=== PATIENT | female | born 1965 | race African-American/Black ===

== ENCOUNTER 2016-08-29 21:06 | Emergency (ER) | payer OTHER ==
[~2016-08-29] VITALS: Ht 177.8 cm; Wt 84.4 kg
[~2016-08-29 21:06] MED LIST: ALBUTEROL2.5 MG/3 M INH; AMOXICILLIN500 MG ORAL; AUGMENTIN 875-1 EAC1 ORAL; CORTISPORIN EAR10 ML OTIC; DEPAKOTE250 MG PO; DILANTIN100 MG ORAL; IBUPROFEN600 MG ORAL; PHENYTOIN MC; TRAMADOL HCL50 MG ORAL; VALIUM5 MG ORAL
[2016-08-29] MEDS ORDERED: IBUPROFEN600 MG ORAL (21:57)
--- NOTE | 2016-08-29 21:58 | Emergency Room Report ---
History of Present Illness General Chief Complaint: Multiple Trauma/Fall Source: Patient Present Illness [facility] This is a 51-year-old female presents with chief complaint of a fall. She said she was walking down the steps and she slipped and fell her knee and elbow. Complaining of bilateral knee and elbow pain. No loss of consciousness. Said pain is 9/10. No other injury. No swelling. Allergies: Coded Allergies: PHENOBARBITAL (Unverified Allergy, Unknown, 10/23/14) Patient History Past Medical History: see triage record, old chart reviewed Past Surgical History: none Pertinent Family History: none Social History: Reports: drug use, Denies: smoking Last Menstrual Period: 2001 Now: No Immunizations: other Reviewed Nursing Documentation: PMH: Agreed, PSxH: Agreed Nursing Documentation-PMH Past Medical History: No History, Except For Hx Asthma: Yes Hx COPD: Yes Hx Diabetes: Yes Hx Cerebrovascular Accident: Yes Hx Seizures: Yes Review of Systems Eye: Denies: blurred vision, eye pain ENT: Denies: ear pain, nose congestion, throat swelling Respiratory: Denies: cough, shortness of breath Cardiovascular: Denies: chest pain, palpitations Gastrointestinal: Denies: abdominal pain, diarrhea, nausea, vomiting Musculoskeletal: Denies: back pain, joint pain Skin: Denies: rash Neurological: Denies: headache, numbness Endocrine: Denies: increased thirst, increased urine Hematologic/Lymphatic: Denies: easy bruising All Other Systems: negative except mentioned in HPI Physical Exam Vital Signs Date Time Temp Pulse Resp B/P Pulse Ox O2 Delivery O2 Flow Rate FiO2 08/29/16 21:18 98.2 85 16 111/73 100 Room Air vitals normal Sp02 EP Interpretation: reviewed, normal General Appearance: well appearing, no apparent distress, alert Head: normocephalic, atraumatic Eyes: bilateral eye EOMI, bilateral eye PERRL ENT: hearing grossly normal, normal pharynx Neck: full range of motion, supple, no meningismus Respiratory: chest non-tender, lungs clear, normal breath sounds Cardiovascular #1: regular rate, rhythm, no murmur Gastrointestinal: normal bowel sounds, non tender, no mass, no organomegaly, no bruit, non-distended Musculoskeletal: back normal, gait/station normal, normal range of motion Psychiatric: mood/affect normal Skin: warm/dry Medical Decision Making Diagnostic Impression: Primary Impression: Elbow contusion Qualified Codes: S50.00XA - Contusion of unspecified elbow, initial encounter Additional Impression: Knee contusion Qualified Codes: S80.00XA - Contusion of unspecified knee, initial encounter ER Course Patient presents with chief complaint of fall and injury. I see no trauma to the elbow or the knee. No swelling or abrasion. No need for x-rays. We'll discharge home. Last Vital Signs Date Time Temp Pulse Resp B/P Pulse Ox O2 Delivery O2 Flow Rate FiO2 08/29/16 21:18 98.2 85 16 111/73 100 Room Air Status: improved Disposition: HOME, SELF-CARE Condition: Stable Scripts Ibuprofen* (MOTRIN*) 600 Mg Tablet 600 MG ORAL Q8H Y for For Pain, #30 TAB 0 Refills Prov: KYLAH TREVIÑO M.D. 08/29/16 Additional Instructions: Follow up with your doctor in 7 days. Return if worse. KYLAH TREVIÑO M.D. Aug 29, 2016 21:58
[2016-08-29 22:08] VITALS: BP 114/76
[2016-08-29 22:09] VITALS: BP 114/76
== END 2016-08-29 22:10 | disposition home or self-care (01) ==
LOC: EMR 21:41
DX: S50.00XA Contusion of unspecified elbow, initial encounter (principal); S80.00XA Contusion of unspecified knee, initial encounter; J44.9 Chronic obstructive pulmonary disease, unspecified; J45.909 Unspecified asthma, uncomplicated; E11.9 Type 2 diabetes mellitus without complications; Z86.73 Personal history of transient ischemic attack (TIA), and cerebral infarction without residual deficits; Z88.8 Allergy status to other drugs, medicaments and biological substances; W10.9XXA Fall (on) (from) unspecified stairs and steps, initial encounter; Y92.9 Unspecified place or not applicable; Y99.8 Other external cause status
CPT/HCPCS: 99283

== ENCOUNTER 2017-02-12 10:56 | Emergency (ER) | payer OTHER ==
[~2017-02-12] VITALS: Ht 177.8 cm; Wt 86.2 kg
[2017-02-12 11:20] VITALS: BP 114/72
--- NOTE | 2017-02-12 11:25 | Emergency Room Report ---
History of Present Illness General Chief Complaint: Earache Source: Patient Present Illness HPI Patient with severe R ear pain. Several days. No change in hearing. No discharge. Tender behind ear and to touch. Pain 9/10, constant and aching. Had OE May 2016 - was told "swimmer's ear" and states this is not what this is. She has fallen because her equilibrium is off. C/O R knee pain, though able to walk. Pain in knee is less than ear and aching, not radiating. No fevers, NVD, URI sy, eye changes, nose d/c. Denies rash. Presented via EMS. Allergies: Coded Allergies: PHENOBARBITAL (Unverified Allergy, Unknown, VOMIT/CRAMPING, 12/01/16) Patient History Past Medical History: see triage record Social History: Reports: smoking Social History Narrative at home Nursing Documentation-[facility] Past Medical History: No History, Except For Hx Cardiac Problems: Yes Hx Asthma: Yes Hx COPD: Yes Hx Diabetes: Yes Hx Cancer: No Hx Gastrointestinal Problems: No Hx Neurological Problems: Yes Hx Cerebrovascular Accident: Yes Hx Seizures: Yes - Epilepsy Review of Systems All Other Systems: negative except mentioned in HPI Physical Exam Vital Signs Date Time Temp Pulse Resp B/P Pulse Ox O2 Delivery O2 Flow Rate FiO2 02/12/17 10:52 97.5 68 14 114/72 96 Room Air Sp02 EP Interpretation: reviewed, normal General Appearance: well appearing, no apparent distress, GCS 15 Head: normocephalic, atraumatic Eyes: bilateral eye PERRL, bilateral eye normal inspection ENT: hearing grossly normal, normal voice, other - TM normal R, canal erythema and pinna tenderness. Some scale lobe. Neck: full range of motion, supple, no bony tend Respiratory: lungs clear, no respiratory distress, speaking full sentences Cardiovascular #1: regular rate, rhythm Cardiovascular #2: 2+ radial (R) Gastrointestinal: scaphoid Musculoskeletal: digits/nails normal, gait/station normal, normal range of motion, no calf tenderness, swelling - minimal medial R knee. Ligaments stable. Ambulatory Neurologic: alert, normal gait, grossly normal Psychiatric: mood/affect normal Skin: other - scale earlobe Medical Decision Making Diagnostic Impression: Primary Impression: Otitis externa Qualified Codes: H60.311 - Diffuse otitis externa, right ear ER Course Patient presents with R OE. TM intact. Some inflammation of lobe (possibly allergic). Needs antibiotics and analgesics. Knee neg by [place] knee rules. No x-rays indicated. Treated with antibiotics and analgesics. Improved. Patient stable for outpatient observation and treatment. Last Vital Signs Date Time Temp Pulse Resp B/P Pulse Ox O2 Delivery O2 Flow Rate FiO2 02/12/17 13:32 97.5 68 14 114/72 96 Room Air Status: improved Disposition: HOME, SELF-CARE Condition: Improved Scripts Bacitracin (Bacitracin) 28.4 Gm Oint...g. 1 APPLIC TOPIC BID, #10 GM Prov: Constantino Ya M.D. 02/12/17 Tramadol Hcl* (ULTRAM*) 50 Mg Tablet 50 MG ORAL Q6H Y for For Pain, #10 TAB 0 Refills Prov: Constantino Ya M.D. 02/12/17 Ibuprofen* (MOTRIN*) 600 Mg Tablet 600 MG ORAL Q6H Y for For Pain, #20 TAB Prov: Constantino Ya M.D. 02/12/17 Ciprofloxacin Hcl/Dexameth (CIPRODEX OTIC SUSPENSION) 7.5 Ml Drops.susp 4 DROP RIGHT EAR TWICE A DAY, #10 ML Prov: Constantino Ya M.D. 02/12/17 Ciprofloxacin* (CIPRO*) 500 Mg Tablet 500 MG PO BID, #14 TAB Prov: Constantino Ya M.D. 02/12/17 Referrals: NOT CHOSEN CHACHO/,REFERRING (PCP) Constantino Ya M.D. Feb 12, 2017 11:25
[2017-02-12] MEDS ORDERED: IBUPROFEN600 MG ORAL (11:28)
[2017-02-12] MEDS ORDERED: CIPRO500 MG PO (11:28)
[2017-02-12] MEDS ORDERED: CIPRODEX OTIC7.5 M1 RIGHT EAR (11:28)
[2017-02-12] MEDS ORDERED: TRAMADOL HCL50 MG ORAL (11:28)
[2017-02-12] MEDS ORDERED: Ciprofloxacin 500mg tab ORAL ONE (11:30)
[2017-02-12] MEDS ORDERED: BACITRACIN15 GM TOPIC (11:31)
[2017-02-12 13:32] VITALS: BP 114/72
== END 2017-02-12 13:33 | disposition home or self-care (01) ==
LOC: EDBD 10:56 → EMR 11:11
DX: H60.91 Unspecified otitis externa, right ear (principal); E11.9 Type 2 diabetes mellitus without complications; J44.9 Chronic obstructive pulmonary disease, unspecified; M79.89 Other specified soft tissue disorders; F17.200 Nicotine dependence, unspecified, uncomplicated; Z88.8 Allergy status to other drugs, medicaments and biological substances; Z86.73 Personal history of transient ischemic attack (TIA), and cerebral infarction without residual deficits
CPT/HCPCS: 99284

== ENCOUNTER 2017-03-21 14:29 | Emergency (ER) | payer OTHER ==
[~2017-03-21] VITALS: Ht 172.7 cm; Wt 72.6 kg
[2017-03-21 14:29] VITALS: BP 112/74
[~2017-03-21 14:29] MED LIST changes: +BACITRACIN15 GM TOPIC; +CIPRO500 MG PO; +CIPRODEX OTIC7.5 M1 RIGHT EAR
[2017-03-21 15:45] LABS: BASOPHILS % (AUTO) 1.1 % (0.0-2.0); EOSINOPHILS % (AUTO) 2.7 % (0.0-3.0); MEAN CORPUSCULAR HEMOGLOBIN 32.2 PG (27.0-31.0); MEAN CORPUSCULAR HGB CONC 33.7 G/DL (32.0-36.0); MEAN CORPUSCULAR VOLUME 96 FL (80-99); MONOCYTES % (AUTO) 8.8 % (1.0-10.0); NEUTROPHILS % (AUTO) 56.5 % (45.0-75.0); PLATELET COUNT 213 K/UL (150-450); RED BLOOD COUNT 4.33 M/UL (4.20-5.40); RED CELL DISTRIBUTION WIDTH 12.7 % (11.6-14.8)
[2017-03-21 15:53] LABS: ACETAMINOPHEN < 10 ug/mL (10-30); ALANINE AMINOTRANSFERASE 11 U/L (3-33); ALBUMIN/GLOBULIN RATIO 1.3 (1.0-2.7); ALCOHOL < 10 mg/dL; ANION GAP 13 (5-15); ASPARTATE AMINO TRANSFERASE 18 U/L (5-40); CALCIUM 9.8 mg/dL (8.6-10.2); CARBON DIOXIDE 24 mEQ/L (20-30); CHLORIDE 104 mEQ/L (98-107); CREATININE 0.7 mg/dL (0.5-0.9); GLOMERULAR FILTRATION RATE > 60 mL/min (>60); HEMOLYSIS 16; POTASSIUM 4.1 mEQ/L (3.4-4.9); SODIUM 141 mEQ/L (135-145); TOTAL PROTEIN 7.9 g/dL (6.6-8.7)
--- NOTE | 2017-03-21 16:00 | Emergency Room Report ---
History of Present Illness General Chief Complaint: Overdose Source: Patient, EMS Present Illness HPI Patient 51-year-old female who presented after increased who presented after a reported overdose of Seroquel. Patient reportedly took 5 pills of Seroquel XR 400 mg. Ingestion occurred approximately 1 1/2 hours prior to arrival . The patient brought in by EMS. Allergies: Coded Allergies: PHENOBARBITAL (Unverified Allergy, Unknown, VOMIT/CRAMPING, 12/01/16) Patient History Reviewed Nursing Documentation: PMH: Agreed, PSxH: Agreed Nursing Documentation-PMH Hx Hypertension: Yes - emphysema, chf Hx Asthma: Yes Hx COPD: Yes Hx Diabetes: Yes Hx Cancer: No Hx Gastrointestinal Problems: No History Of Psychiatric Problem: Yes Hx Neurological Problems: Yes Hx Cerebrovascular Accident: Yes Hx Seizures: Yes Review of Systems All Other Systems: negative except mentioned in HPI Physical Exam Vital Signs Date Time Temp Pulse Resp B/P Pulse Ox O2 Delivery O2 Flow Rate FiO2 03/21/17 14:27 97.2 72 16 112/74 99 Room Air Sp02 EP Interpretation: reviewed, normal General Appearance: normal inspection, well appearing, no apparent distress, alert, GCS 15 Head: normocephalic, atraumatic ENT: normal ENT inspection, hearing grossly normal, normal voice Neck: normal inspection, full range of motion, supple, no bony tend Respiratory: normal inspection, lungs clear, normal breath sounds, no respiratory distress, no retraction, no wheezing Cardiovascular #1: regular rate, rhythm, no edema Gastrointestinal: normal inspection, normal bowel sounds, non tender, soft, no guarding, no hernia Genitourinary: no CVA tenderness Musculoskeletal: normal inspection, back normal, normal range of motion Neurologic: normal inspection, alert, responsive, speech normal Psychiatric: normal inspection, judgement/insight normal, mood/affect normal Skin: normal inspection, normal color, no rash Medical Decision Making Diagnostic Impression: Primary Impression: Cocaine abuse Additional Impression: Drug overdose ER Course Patient is a for possible medication overdose. Differential diagnoses include substance abuse, psychosis, bipolar disorder, depression, malingering Because of complexity of patient's case laboratory testing and imaging studies were ordered. Laboratory studies are unremarkable. Patient was noted to have no evidence of somnolence while in emergency department. Patient was observed for several hours. She had no change in her mental status. Patient does not appear to have evidence of suicidal thoughts this time. Patient is advised to stop using drugs.Patient is advised to return if she began having suicidal thoughts or other concerns. Last Vital Signs Date Time Temp Pulse Resp B/P Pulse Ox O2 Delivery O2 Flow Rate FiO2 03/21/17 14:27 97.2 72 16 112/74 99 Room Air Status: improved Disposition: HOME, SELF-CARE Condition: Stable Tam Camp Mar 21, 2017 15:59
[2017-03-21 16:02] LABS: APPEARANCE,URINE CLEAR; KETONES,URINE NEGATIVE (NEGATIVE); LEUKOCYTE ESTERASE ,URINE 1+ (NEGATIVE); NITRITE,URINE NEGATIVE (NEGATIVE); PH,URINE 6 (4.5-8.0); PROTEIN,URINE NEGATIVE (NEGATIVE); UROBILINOGEN,URINE NORMAL MG/DL (0.0-1.0)
[2017-03-21 16:13] LABS: BACTERIA,URINE FEW /HPF; SQUAMOUS EPITHELIAL CELL,UR FEW /LPF (NONE/OCC); WBC,URINE 0-2 /HPF (0 - 2)
[2017-03-21 18:45] VITALS: BP 115/71
--- NOTE | 2017-03-23 00:52 | Cardiology Report ---
APPROVED REPORT EKG Measurement Heart [id number] Sinus bradycardia Otherwise normal ECG
== END 2017-03-21 18:45 | disposition home or self-care (01) ==
LOC: EDBD 14:29 → EMR 15:28
DX: F14.10 Cocaine abuse, uncomplicated (principal); T43.591A Poisoning by other antipsychotics and neuroleptics, accidental (unintentional), initial encounter; Y92.9 Unspecified place or not applicable; Z88.8 Allergy status to other drugs, medicaments and biological substances; I50.9 Heart failure, unspecified; J44.9 Chronic obstructive pulmonary disease, unspecified; E11.9 Type 2 diabetes mellitus without complications; Z86.73 Personal history of transient ischemic attack (TIA), and cerebral infarction without residual deficits
CPT/HCPCS: 36415; 80053; 80300; 80329; 81003; 81025; 85025; 93005; 96374

== ENCOUNTER 2017-07-12 14:45 | Emergency (ER) | payer OTHER ==
[~2017-07-12] VITALS: Ht 177.8 cm; Wt 81.6 kg
[2017-07-12 14:58] VITALS: BP 100/62
[2017-07-12] MEDS ORDERED: Norco 5mg/325mg tab ORAL ONE (15:15)
--- NOTE | 2017-07-12 15:43 | Diagnostic Imaging Report ---
Indications: PAIN, status post fall Technique: Three views of the knee Comparison: None Findings: No acute fractures. No dislocations. Joint spaces are preserved. No radiopaque foreign body. Normal mineralization. No definite suprapatellar effusion Impression: No acute process
--- NOTE | 2017-07-12 15:43 | Diagnostic Imaging Report ---
Indications: PAIN Technique: Three views of the left knee Comparison: None Findings: No acute fractures. No dislocations. Joint spaces are preserved. No radiopaque foreign body. Normal mineralization. No suprapatellar effusion Impression: No acute process
[2017-07-12] MEDS ORDERED: NORCO 5-325 TA1 EAC1 ORAL (16:00)
[2017-07-12] MEDS ORDERED: IBUPROFEN600 MG ORAL (16:00)
[2017-07-12 16:05] VITALS: BP 100/62
--- NOTE | 2017-07-12 21:14 | Emergency Room Report ---
History of Present Illness General Chief Complaint: Multiple Trauma/Fall Source: Patient Present Illness HPI The patient is a 52-year-old female presenting for the pain. She states that she was walking to the bus today, felt weak at the knees, and fell. She denies hitting her head or loss of consciousness. Pain is 2 both knees described as a 10 out of 10 dull ache. Worse with touch and movement. She admits to previous injury to the knees but is unsure of what. She has not tried any pain medications at. She denies any other symptoms Allergies: Coded Allergies: PHENOBARBITAL (Unverified Allergy, Unknown, VOMIT/CRAMPING, 12/01/16) Patient History Past Medical History: see triage record Pertinent Family History: none Reviewed Nursing Documentation: PMH: Agreed, PSxH: Agreed Nursing Documentation-PMH Hx Hypertension: Yes - emphysema, chf Hx Asthma: Yes Hx COPD: Yes Hx Diabetes: Yes Hx Cancer: No Hx Gastrointestinal Problems: No Hx Neurological Problems: Yes Hx Cerebrovascular Accident: Yes Hx Seizures: Yes Review of Systems All Other Systems: negative except mentioned in HPI Physical Exam Vital Signs Date Time Temp Pulse Resp B/P (MAP) Pulse Ox O2 Delivery O2 Flow Rate FiO2 07/12/17 14:51 97.7 77 14 100/62 99 Room Air Sp02 EP Interpretation: reviewed, normal General Appearance: no apparent distress, alert, GCS 15, non-toxic Head: normocephalic, atraumatic Eyes: bilateral eye normal inspection, bilateral eye PERRL ENT: hearing grossly normal, normal pharynx, no angioedema, normal voice Musculoskeletal: back normal, gait/station normal, normal range of motion, swelling - Bilat knees, tender - Bilat anterior knees Neurologic: alert, oriented x3, responsive, motor strength/tone normal, sensory intact, speech normal Psychiatric: judgement/insight normal, memory normal, mood/affect normal, no suicidal/homicidal ideation Skin: normal color, no rash, warm/dry, well hydrated Medical Decision Making PA Attestation Dr. Camp is my supervising physician. Patient management was discussed with my supervising physician Diagnostic Impression: Primary Impression: Contusion of knee, right Qualified Codes: S80.01XA - Contusion of right knee, initial encounter Additional Impression: Contusion of knee, left Qualified Codes: S80.02XA - Contusion of left knee, initial encounter ER Course The patient is a 52-year-old female presenting for knee pain. Ddx considered include but not limited to sprain/strain, fracture, contusion, among others PE: NAD Knees: Full AROM intact. Bilat swelling anteriorly. TTP anteriorly. Normal gait. No erythema. No abrasion Xray of both knees unremarkable She will be Dc'ed home with RICE instructions and pain medication Other X-Ray Diagnostic Results Other X-Ray Diagnostic Results #1: X-Ray ordered: R knee # of Views/Limited Vs Complete: 3 View Indication: Pain EP Interpretation: Yes PA Xray: Interpretation reviewed, by supervising MD, and agrees with findings. Interpretation: no dislocation, no soft tissue swelling, no fractures Impression: No acute disease Electronically Signed by: Manav Easton PA-C Other X-Ray Diagnostic Results #2: X-Ray ordered: L knee # of Views/Limited Vs Complete: 3 View Indication: Pain EP Interpretation: Yes PA Xray: Interpretation reviewed, by supervising MD, and agrees with findings. Interpretation: no dislocation, no soft tissue swelling, no fractures Impression: No acute disease Electronically Signed by: Manav Easton PA-C Last Vital Signs Date Time Temp Pulse Resp B/P (MAP) Pulse Ox O2 Delivery O2 Flow Rate FiO2 07/12/17 16:05 97.7 74 16 100/62 99 Room Air Status: improved Disposition: HOME, SELF-CARE Condition: Improved Scripts Ibuprofen* (MOTRIN*) 600 Mg Tablet 600 MG ORAL Q8H Y for For Pain, #30 TAB 0 Refills Prov: MANAV EASTON P.A. 07/12/17 Hydrocodone Bit/Acetaminophen 5-325* (NORCO 5-325 TABLET*) 1 Each Tablet 1 TAB ORAL Q6HR Y for For Pain, #8 TAB Prov: MANAV EASTON P.A. 07/12/17 Referrals: NON PHYSICIAN (PCP) Patient Instructions: VINCE Murillo for Routine Care of Injuries Additional Instructions: I discussed my findings with the patient. All questions and concerns have been answered. Treatment and medication compliance have been addressed. I advised the patient that they need to follow up with PMD in 3-5 days. Return to ED if symptoms worsen, new symptoms arise, or if needed for any reason. Patient verbalized understanding of discharge instructions. MANAV EASTON Jul 12, 2017 21:14
== END 2017-07-12 17:03 | disposition home or self-care (01) ==
LOC: EMR 16:13
DX: S80.02XA Contusion of left knee, initial encounter (principal); S80.01XA Contusion of right knee, initial encounter; W19.XXXA Unspecified fall, initial encounter; Y93.01 Activity, walking, marching and hiking; Y92.89 Other specified places as the place of occurrence of the external cause; J44.9 Chronic obstructive pulmonary disease, unspecified; E11.9 Type 2 diabetes mellitus without complications; I10 Essential (primary) hypertension; Z86.73 Personal history of transient ischemic attack (TIA), and cerebral infarction without residual deficits; Z88.8 Allergy status to other drugs, medicaments and biological substances
CPT/HCPCS: 99283

== ENCOUNTER 2017-08-22 15:18 | Emergency (ER) | payer OTHER ==
[~2017-08-22] VITALS: Ht 177.8 cm; Wt 68.0 kg
[~2017-08-22 15:18] MED LIST changes: +NORCO 5-325 TA1 EAC1 ORAL
--- NOTE | 2017-08-22 15:46 | Emergency Room Report ---
History of Present Illness General Chief Complaint: General Complaint Present Illness HPI 52-year-old female presents to the emergency department complaining of painless lump in the a.c. region of the right upper extremity x3 years. Patient is requesting evaluation because she wants to donate plasma. Patient reports history of cancer. Pt. reports hx of painful venipuncture experience the last time she donated plasma multiple years ago and wants to make sure her arm is ok for donation. She denies pain, erythema, skin color changes, paresthesias, unilateral weakness in the affected extremity. She denies swollen tender lymph nodes, fevers or chills. Denies CP, Palpitations, LOC, AMS, dizziness, Changes in Vision, Sensation, paresthesias, or a sudden severe headache. Allergies: Coded Allergies: PHENOBARBITAL (Unverified Allergy, Unknown, VOMIT/CRAMPING, 12/01/16) Patient History Past Medical History: see triage record, other Past Surgical History: none Pertinent Family History: none Reviewed Nursing Documentation: PMH: Agreed, PSxH: Agreed Nursing Documentation-PMH Hx Hypertension: Yes - emphysema, chf Hx Asthma: Yes Hx COPD: Yes Hx Diabetes: Yes Hx Cancer: No Hx Gastrointestinal Problems: No Hx Neurological Problems: Yes Hx Cerebrovascular Accident: Yes Hx Seizures: Yes Review of Systems All Other Systems: negative except mentioned in HPI Physical Exam Vital Signs Date Time Temp Pulse Resp B/P (MAP) Pulse Ox O2 Delivery O2 Flow Rate FiO2 08/22/17 15:26 97.9 70 20 102/57 99 Room Air Sp02 EP Interpretation: reviewed, normal General Appearance: no apparent distress, alert, GCS 15, non-toxic Head: normocephalic, atraumatic ENT: hearing grossly normal, normal voice Neck: full range of motion Respiratory: lungs clear, normal breath sounds, speaking full sentences Cardiovascular #1: regular rate, rhythm, normal capillary refill Musculoskeletal: back normal, gait/station normal, normal range of motion, non- tender Neurologic: alert, oriented x3, responsive, motor strength/tone normal, sensory intact, normal gait, speech normal, grossly normal Psychiatric: judgement/insight normal Skin: normal color, no rash, warm/dry, well hydrated, other - 1cm mobile well circumcribed palpable UE lipoma in the right A/C area , no infection, no acute injury or disease noted at this time Lymphatic: no adenopathy Medical Decision Making PA Attestation Dr. Rashid is my supervising Physician whom patient management has been discussed with. Diagnostic Impression: Primary Impression: Lipoma Qualified Codes: D17.21 - Benign lipomatous neoplasm of skin and subcutaneous tissue of right arm Additional Impression: Encounter for medical screening examination ER Course 52-year-old female presents to the emergency department complaining of painless lump in the a.c. region of the right upper extremity x3 years. Patient is requesting evaluation and she wants to undergo plasmapheresis. Patient reports history of cancer or she denies pain, erythema, skin color changes, paresthesias , unilateral weakness in the affected extremity. She denies swollen tender lymph nodes, fevers or chills. Denies CP, Palpitations, LOC, AMS, dizziness, Changes in Vision, Sensation, paresthesias, or a sudden severe headache. Ddx considered but are not limited to lipoma, blood clot, phlebitis, cyst, abscess just to name a few. Vital signs: are WNL, pt. is afebrile H&PE are most consistent with UE lipoma, no infection, no acute injury or disease noted at this time. pt. is NAD, NON-toxic, able to answer questions appropriately, pt. is oriented, and no signs of trauma or focal neurological deficits. ORDERS: none required at this time, the diagnosis is clinical ED INTERVENTIONS: None required at this time. I discussed with this patient that as an emergency room provider my main purpose is to evaluate and treat any medical emergencies. I discussed with her that for physical exam, clearance and completion of her plasma donation evaluation needs to be performed and filled/signed out by a PMD. I showed patient the signature page which details the form is to be filled out by PMD and explained I am not a primary care provider. -I do not identify an emergent condition at this time. With current presentation , pt. is stable for close outpatient follow up and conservative treatment. D/ w pt. to return promptly to ED with worsening or new symptoms.- Pt. (and or responsible libertarian) verbalizes' understanding and agreement with proposed treatment plan.proposed treatment plan. . DISCHARGE: At this time pt. is stable for d/c to home. Will provide printed patient care instructions, and any necessary prescriptions. Care plan and follow up instructions have been discussed with the patient prior to discharge. Last Vital Signs Date Time Temp Pulse Resp B/P (MAP) Pulse Ox O2 Delivery O2 Flow Rate FiO2 08/22/17 15:26 97.9 70 20 102/57 99 Room Air Disposition: HOME, SELF-CARE Condition: Stable Patient Instructions: Lipoma, Medical Screening Exam Additional Instructions: Take any previously prescribed medications as directed. Follow up with a Primary Care Provider in 3-5 days, even if your symptoms have resolved. --Please review list of primary care clinics, if you do not already have a primary care provider Return sooner to ED if new symptoms occur, or current symptoms become worse. - Please note that this Emergency Department Report was dictated using [employer] technology software, occasionally this can lead to erroneous entry secondary to interpretation by the dictation equipment. Christina Villarreal Aug 22, 2017 15:46
[2017-08-22 16:00] VITALS: BP 102/57
== END 2017-08-22 16:00 | disposition home or self-care (01) ==
LOC: EMR 15:40
DX: D17.21 Benign lipomatous neoplasm of skin and subcutaneous tissue of right arm (principal); I10 Essential (primary) hypertension; J44.9 Chronic obstructive pulmonary disease, unspecified; E11.9 Type 2 diabetes mellitus without complications; Z86.73 Personal history of transient ischemic attack (TIA), and cerebral infarction without residual deficits; Z88.8 Allergy status to other drugs, medicaments and biological substances
CPT/HCPCS: 99283

== ENCOUNTER 2017-10-11 05:57 | Emergency (ER) | payer OTHER ==
[~2017-10-11] VITALS: Ht 177.8 cm; Wt 77.1 kg
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
[2017-10-11 06:30] LABS: APPEARANCE,URINE CLEAR; BILIRUBIN, URINE NEGATIVE (NEGATIVE); COLOR,URINE PALE YELLOW; GLUCOSE, URINE (UA) NEGATIVE (NEGATIVE); KETONES,URINE NEGATIVE (NEGATIVE); LEUKOCYTE ESTERASE ,URINE 1+ (NEGATIVE); NITRITE,URINE NEGATIVE (NEGATIVE); PH,URINE 6 (4.5-8.0); PROTEIN,URINE NEGATIVE (NEGATIVE); UROBILINOGEN,URINE NORMAL MG/DL (0.0-1.0)
[2017-10-11 06:31] LABS: EOSINOPHILS % (AUTO) 2.5 % (0.0-3.0); HEMATOCRIT 36.6 % (37.0-47.0); HEMOGLOBIN 12.6 G/DL (12.0-16.0); LYMPHOCYTES % (AUTO) 29.5 % (20.0-45.0); MEAN CORPUSCULAR VOLUME 92 FL (80-99); MONOCYTES % (AUTO) 9.3 % (1.0-10.0); NEUTROPHILS % (AUTO) 57.8 % (45.0-75.0); PLATELET COUNT 198 K/UL (150-450); RED CELL DISTRIBUTION WIDTH 12.5 % (11.6-14.8); WHITE BLOOD COUNT 9.2 K/UL (4.8-10.8)
[2017-10-11 06:37] VITALS: BP 121/79
[2017-10-11 06:44] LABS: ANION GAP 7 mmol/L (5-15); BLOOD UREA NITROGEN 13 mg/dL (7-18); CALCIUM 8.8 MG/DL (8.5-10.1); CARBON DIOXIDE 27 MMOL/L (21-32); CHLORIDE 106 MMOL/L (98-107); CREATININE 0.8 MG/DL (0.55-1.30); POTASSIUM 3.7 MMOL/L (3.5-5.1); SODIUM 140 MMOL/L (136-145)
[2017-10-11] MEDS ORDERED: Acetaminophen 500mg (ES) tab ORAL ONE (06:45)
[2017-10-11] MEDS ORDERED: Phenytoin 250mg/5ml vial ONE (07:23)
[2017-10-11] MEDS ORDERED: DOXYCYCLINE MO100 MG ORAL (07:28)
[2017-10-11] MEDS ORDERED: KEFLEX500 MG ORAL (07:28)
[2017-10-11] MEDS ORDERED: Phenytoin 500 MG in NS 110 ML IVPB ONE (07:30)
[2017-10-11 07:52] VITALS: BP 120/68
[2017-10-11 08:53] VITALS: BP 120/68
--- NOTE | 2017-10-11 10:04 | Diagnostic Imaging Report ---
Indication: Seizure Technique: Contiguous 5 mm thick transaxial imaging of the head obtained in a Siemens Sensation [address] scanner. Soft tissue and bone windows generated. Automatic Exposure Control was utilized. Total Dose length Product (DLP): 1414.[address] Dose Index Volume (CTDIvol): 70.38 mGy Comparison: 12/01/2016 Findings: The size and configuration of the cortical sulci, basal cisterns, and ventricles are within normal limits for age. There is no mass effect, midline shift, or edema identified. There is no evidence of acute hemorrhage or abnormal intra-axial or extra-axial fluid collections. The bones and soft tissues are unremarkable. Impression: No mass effect, edema or acute bleed. The CT scanner at [facility] is accredited by the [employer] and the scans are performed using dose optimization techniques as appropriate to a performed exam including Automatic Exposure control.
== END 2017-10-11 08:54 | disposition home or self-care (01) ==
LOC: EDBD 05:57 → EMR 06:35
DX: H60.02 Abscess of left external ear (principal); R41.82 Altered mental status, unspecified; F14.10 Cocaine abuse, uncomplicated
CPT/HCPCS: 36415; 70450; 80048; 80185; 80307; 81003; 85025; 96361; 96365; 99284; J1165

== ENCOUNTER 2018-04-06 10:07 | Emergency (ER) | payer OTHER ==
[~2018-04-06] VITALS: Ht 177.8 cm; Wt 81.2 kg
[~2018-04-06 10:07] MED LIST changes: +DOXYCYCLINE MO100 MG ORAL; +KEFLEX500 MG ORAL
[2018-04-06 10:10] VITALS: BP 137/85
--- NOTE | 2018-04-06 10:28 | Emergency Room Report ---
History of Present Illness General Chief Complaint: Lower Extremity Injury Source: Patient Present Illness HPI Patient is a 52-year-old female who presented after increased left lower extremity discomfort. Patient was having increased pain to the the left foot. This was throbbing in nature. Patient reports having recent injury while playing basketball. She reports having prior surgery to both tib fibs after fracture as a child. The patient reports being able to ambulate with pain. She reported having increased the discomfort to her arch of her foot. The patient had recent dental procedure and is currently taking penicillin.The patient's prior history of lung disease as well as seizure disorder. She states that she takes Dilantin. Allergies: Coded Allergies: PHENOBARBITAL (Unverified Allergy, Unknown, VOMIT/CRAMPING, 12/01/16) Patient History Past Medical History: see triage record Last Menstrual Period: NA Now: No Reviewed Nursing Documentation: PMH: Agreed; PSxH: Agreed Nursing Documentation-PMH Past Medical History: No History, Except For Hx Hypertension: Yes - emphysema, chf Hx Asthma: Yes Hx COPD: Yes Hx Diabetes: No Hx Cancer: No Hx Gastrointestinal Problems: No Hx Neurological Problems: Yes - bipolar Hx Cerebrovascular Accident: Yes Hx Seizures: Yes Review of Systems All Other Systems: negative except mentioned in HPI Physical Exam Vital Signs Date Time Temp Pulse Resp B/P (MAP) Pulse Ox O2 Delivery O2 Flow Rate FiO2 04/06/18 10:10 97.9 67 18 137/85 94 Room Air 97.9 General Appearance: well appearing, no apparent distress, alert, GCS 15 Head: normocephalic, atraumatic ENT: hearing grossly normal, normal voice Neck: full range of motion, supple Respiratory: no respiratory distress, speaking full sentences Gastrointestinal: normal inspection Musculoskeletal: no calf tenderness, swelling - left foot swelling, no deformity, no ankle or calf swelling, brisk pulses and cap refill Neurologic: alert, oriented x3, responsive, rail washer III-XII nml as tested, motor strength/tone normal, normal gait Psychiatric: mood/affect normal Skin: no rash Medical Decision Making Diagnostic Impression: Primary Impression: Contusion of knee, right Additional Impression: Foot sprain ER Course Patient presented for foot pain. Differential diagnoses include was was not limited to cellulitis, foreign body, fracture, plantar fasciitis, vascular insufficiency, sprain. Because of complexity of patient's case imaging studies were ordered. X-ray imaging of the left foot 3 views interpreted by me showed normal bony alignment without fracture The patient appears to have a foot sprain. There is no no evidence of infection.The patient is advised to follow up with primary care doctor in 2-3 days. Patient is advised to return if any worsening condition or if any changes in status that are concerning. This report is dictated with [employer] paper products supervisor software which may occasionally lead to discrepancies related to use of this software. Other X-Ray Diagnostic Results Other X-Ray Diagnostic Results : # of Views/Limited Vs Complete: 3 View Indication: Pain EP Interpretation: Yes Interpretation: no dislocation, no fractures, other - soft tissue swelling Impression: Other - soft tissue swelling, no fractures Electronically Signed by: Electronically signed by Dr. Tam Camp M.D. Last Vital Signs Date Time Temp Pulse Resp B/P (MAP) Pulse Ox O2 Delivery O2 Flow Rate FiO2 04/06/18 10:10 97.9 67 18 137/85 94 Room Air 97.9 Status: improved Disposition: HOME, SELF-CARE Condition: Stable Scripts Acetaminophen* (ACETAMINOPHEN EXTRA STRENGTH*) 500 Mg Tablet 500 MG ORAL Q8H PRN for Fever/Headache/Mild Pain, #30 TAB Prov: Tam Camp MD 04/06/18 Tam Camp MD Apr 06, 2018 10:28
[2018-04-06] MEDS ORDERED: Acetaminophen 500mg (ES) tab ORAL ONE (10:30)
[2018-04-06] MEDS ORDERED: ACETAMINOPHEN500 M3 ORAL (10:52)
--- NOTE | 2018-04-06 11:37 | Diagnostic Imaging Report ---
EXAM: XR Left Foot Complete, 3 or More Views CLINICAL HISTORY: PAIN TECHNIQUE: Frontal, lateral and oblique views of the left foot. COMPARISON: No relevant prior studies available. FINDINGS: Bones/joints: Unremarkable. No visible displaced fracture. No dislocation. No osseous erosions. Visualized joint spaces appear unremarkable. Soft tissues: Unremarkable. No radiopaque foreign body. IMPRESSION: Unremarkable left foot x-rays.
== END 2018-04-06 11:05 | disposition home or self-care (01) ==
LOC: EMR 10:29
DX: S93.692A Other sprain of left foot, initial encounter (principal); S80.01XA Contusion of right knee, initial encounter; W18.39XA Other fall on same level, initial encounter; Y93.67 Activity, basketball; Y92.89 Other specified places as the place of occurrence of the external cause; I50.9 Heart failure, unspecified; I10 Essential (primary) hypertension; J43.9 Emphysema, unspecified; F31.9 Bipolar disorder, unspecified; F17.200 Nicotine dependence, unspecified, uncomplicated; Z88.5 Allergy status to narcotic agent
CPT/HCPCS: 99283

== ENCOUNTER 2018-10-12 09:13 | Emergency (ER) | payer OTHER ==
[~2018-10-12] VITALS: Ht 177.8 cm; Wt 92.5 kg
[~2018-10-12 09:13] MED LIST changes: +ACETAMINOPHEN500 M3 ORAL
[2018-10-12 09:40] VITALS: BP 122/76
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
[2018-10-12] MEDS ORDERED: Acetaminophen 500mg (ES) tab ORAL ONE (09:45)
--- NOTE | 2018-10-12 09:50 | NUR ---
ED Nurse Note: patient went down for CT
--- NOTE | 2018-10-12 10:05 | NUR ---
ED Nurse Note: patient is back no acute disstress noticed, VSS at this time
--- NOTE | 2018-10-12 10:55 | NUR ---
ED Nurse Note: attempted to call [employer] twice by [phone] and [phone] the rwas no answer. Explain and teach pt. to call [employer] and give the report, pt. verbalised understanding.
[2018-10-12 10:57] VITALS: BP 110/71
[2018-10-12] MEDS ORDERED: LORazepam 0.5mg tab ORAL ONE (11:00)
[2018-10-12 11:12] VITALS: BP 110/71
--- NOTE | 2018-10-12 11:14 | NUR ---
ED Nurse Note: Pt cleared by health care Provider for discharge. DC instructions/prescription was given and explained to pt and verbalized understanding of teachings. All medical deviecs such as ID band removed. Pt is AAO x4, ambulatory and left with all personal belongings.
--- NOTE | 2018-10-12 12:13 | NUR ---
Officer Jaciel came to take report from patient. Patient is already gone.
== END 2018-10-12 11:46 | disposition home or self-care (01) ==
LOC: EMR 09:35
DX: M25.511 Pain in right shoulder (principal); I10 Essential (primary) hypertension; Y04.8XXA Assault by other bodily force, initial encounter
CPT/HCPCS: 99282

== ENCOUNTER 2018-11-07 15:51 | Emergency (ER) | payer OTHER ==
[~2018-11-07] VITALS: Ht 165.1 cm; Wt 90.7 kg
[2018-11-07] MEDS ORDERED: DiphenhydrAMINE 50mg/ml Inj IVP ONE (16:15)
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
--- NOTE | 2018-11-07 16:45 | NUR ---
ED Nurse Note: Zev venous blood sample for carboxyhemoglobin and provided to RT.
[2018-11-07 16:47] VITALS: BP 121/78
[2018-11-07 16:57] LABS: BASOPHILS % (AUTO) 1.2 % (0.0-2.0); EOSINOPHILS % (AUTO) 3.3 % (0.0-3.0); HEMATOCRIT 39.5 % (37.0-47.0); HEMOGLOBIN 13.1 G/DL (12.0-16.0); LYMPHOCYTES % (AUTO) 30.9 % (20.0-45.0); MEAN CORPUSCULAR VOLUME 91 FL (80-99); MONOCYTES % (AUTO) 8.3 % (1.0-10.0); NEUTROPHILS % (AUTO) 56.2 % (45.0-75.0); PLATELET COUNT 214 K/UL (150-450); RED BLOOD COUNT 4.34 M/UL (4.20-5.40); RED CELL DISTRIBUTION WIDTH 12.9 % (11.6-14.8)
--- NOTE | 2018-11-07 16:58 | NUR ---
RESPIRATORY NOTE: VBG results given to Dr Barrett. FCOHb 3.0
[2018-11-07 17:05] LABS: ANION GAP 9 mmol/L (5-15); BLOOD UREA NITROGEN 13 mg/dL (7-18); CALCIUM 8.9 MG/DL (8.5-10.1); CARBON DIOXIDE 27 MMOL/L (21-32); CHLORIDE 107 MMOL/L (98-107); CREATININE 0.9 MG/DL (0.55-1.30); POTASSIUM 3.9 MMOL/L (3.5-5.1); SODIUM 143 MMOL/L (136-145)
[2018-11-07 17:09] LABS: ALANINE AMINOTRANSFERASE 27 U/L (12-78); ALBUMIN 3.6 G/DL (3.4-5.0); ALBUMIN/GLOBULIN RATIO 0.9 (1.0-2.7); ALKALINE PHOSPHATASE 98 U/L (46-116); ASPARTATE AMINO TRANSFERASE 20 U/L (15-37); BILIRUBIN,TOTAL 0.3 MG/DL (0.2-1.0)
--- NOTE | 2018-11-07 17:09 | NUR ---
ED Nurse Note: Dr Barrett states that pt's carboxyhemoglobin is high and wants the pt on a non rebreather mask. RN Applied oxygen at 15LPm via non rebreather mask. sats 100%.
[2018-11-07 17:20] VITALS: BP 115/80
[2018-11-07 18:18] VITALS: BP 128/75
--- NOTE | 2018-11-07 18:18 | NUR ---
ER DISCHARGE NOTE: Patient is cleared to be discharged per ERMD, pt is aox4, on room air, with stable vital signs. pt was given dc and prescription instructions, pt was able to verbalize understanding, pt id band and iv site removed without complications. pt is able to ambulate with steady gait. pt took all belongings. taxi voucher provided.
--- NOTE | 2018-11-08 14:52 | Diagnostic Imaging Report ---
Indication: Shortness of breath Technique: One view of the chest Comparison: 12/01/2016 Findings: Lungs and pleural spaces are clear. Heart size is normal Impression: No acute process
== END 2018-11-07 18:18 | disposition home or self-care (01) ==
LOC: EDBD 15:51 → EDUNIT# 15:51 → EMR 16:33
DX: T59.811A Toxic effect of smoke, accidental (unintentional), initial encounter (principal); R06.02 Shortness of breath; Y92.009 Unspecified place in unspecified non-institutional (private) residence as the place of occurrence of the external cause; J44.9 Chronic obstructive pulmonary disease, unspecified; I50.9 Heart failure, unspecified; Z88.8 Allergy status to other drugs, medicaments and biological substances
CPT/HCPCS: 36415; 71045; 80053; 85025; 93005; 96374; 99291; J1200

== ENCOUNTER 2019-03-16 14:34 | Emergency (ER) | payer OTHER ==
[~2019-03-16] VITALS: Ht 177.8 cm; Wt 104.3 kg
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
[2019-03-16 14:34] VITALS: BP 112/48
[~2019-03-16 14:34] MED LIST changes: +LITHIUM CARBON300 MG ORAL
[2019-03-16] MEDS ORDERED: ALBUTEROL SULF8.5 GM INH (14:44)
[2019-03-16] MEDS ORDERED: ALBUTEROL2.5 MG/3 M HHN (14:44)
[2019-03-16] MEDS ORDERED: PREDNISONE20 MG ORAL (14:44)
[2019-03-16] MEDS ORDERED: Albuterol/Ipratropium 3ml neb HHN ONE (14:45)
--- NOTE | 2019-03-16 14:52 | NUR ---
ED Nurse Note: PT LAYING PEACEFULLY IN BED IN NAD. AOX4. PRESCRIPTIONS AND DISCHARGE PAPERWORK EXPLAINED TO PT. PT VERBALIZES UNDERSTANDING AND ALL QUESTIONS ANSWERED. PRESCRIPTION AND DISCHARGE PAPERWORK GIVEN TO PT AND ID WRISTBAND REMOVED. PT WALKED OUT OF ER WITH STEADY GAIT AND ALL BELONGINGS.
[2019-03-16 14:54] VITALS: BP 116/56
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
== END 2019-03-16 14:54 | disposition home or self-care (01) ==
LOC: EDBD 14:34 → EMR 14:50
DX: J45.901 Unspecified asthma with (acute) exacerbation (principal); Z86.73 Personal history of transient ischemic attack (TIA), and cerebral infarction without residual deficits; F31.9 Bipolar disorder, unspecified; I10 Essential (primary) hypertension; J44.9 Chronic obstructive pulmonary disease, unspecified; Z88.8 Allergy status to other drugs, medicaments and biological substances
CPT/HCPCS: 99282

== ENCOUNTER 2019-03-26 14:12 | Emergency (ER) | payer OTHER ==
[~2019-03-26] VITALS: Ht 170.2 cm; Wt 68.0 kg
[~2019-03-26 14:12] MED LIST changes: +ALBUTEROL SULF8.5 GM INH; +ALBUTEROL2.5 MG/3 M HHN; +PREDNISONE20 MG ORAL
[2019-03-26] MEDS ORDERED: KEPPRA500 M4 ORAL (14:17)
[2019-03-26 14:30] VITALS: BP 108/77
--- NOTE | 2019-03-26 14:33 | NUR ---
ED Nurse Note: pt was brought in by ambulance c/o headache, pt stated she had a seizure earlier, 1 before ems came to her house and another one when she is on the ambulance. pt present confusion at this time. pt stated she has hx of sz, asthma and anxiety and was taking keppra, prednisone and xanax. pt able to answer simple questions. papped side rails provided, pt vss. will continue to monitor.
--- NOTE | 2019-03-26 14:40 | NUR ---
ED Nurse Note: pt refused morphine, ermd made aware.
[2019-03-26] MEDS ORDERED: LORazepam Inj 2mg/ml 1ml IV ONE (14:45)
[2019-03-26] MEDS ORDERED: Morphine Sulfate 4mg/ml Inj (IV USE ONLY) IVP ONE (14:45)
--- NOTE | 2019-03-26 14:53 | NUR ---
ED Nurse Note: pt went to ct with tech
[2019-03-26 15:06] LABS: BASOPHILS % (AUTO) 0.8 % (0.0-2.0); EOSINOPHILS % (AUTO) 1.1 % (0.0-3.0); HEMATOCRIT 36.6 % (37.0-47.0); HEMOGLOBIN 12.7 G/DL (12.0-16.0); LYMPHOCYTES % (AUTO) 23.8 % (20.0-45.0); MEAN CORPUSCULAR VOLUME 88 FL (80-99); NEUTROPHILS % (AUTO) 65.3 % (45.0-75.0); PLATELET COUNT 218 K/UL (150-450); RED BLOOD COUNT 4.14 M/UL (4.20-5.40); RED CELL DISTRIBUTION WIDTH 11.9 % (11.6-14.8)
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
--- NOTE | 2019-03-26 15:10 | NUR ---
ED Nurse Note: pt went back from ct with tech
[2019-03-26 15:11] LABS: ALANINE AMINOTRANSFERASE 17 U/L (12-78); ALBUMIN 3.6 G/DL (3.4-5.0); ALKALINE PHOSPHATASE 79 U/L (46-116); BLOOD UREA NITROGEN 11 mg/dL (7-18); CALCIUM 9.1 MG/DL (8.5-10.1); POTASSIUM 3.3 MMOL/L (3.5-5.1)
[2019-03-26 15:20] LABS: ANION GAP 11 mmol/L (5-15); CARBON DIOXIDE 22 MMOL/L (21-32); CHLORIDE 111 MMOL/L (98-107); CREATININE 0.9 MG/DL (0.55-1.30); SODIUM 144 MMOL/L (136-145)
[2019-03-26 15:25] LABS: ASPARTATE AMINO TRANSFERASE 13 U/L (15-37); BILIRUBIN,TOTAL 0.4 MG/DL (0.2-1.0)
--- NOTE | 2019-03-26 15:26 | Diagnostic Imaging Report ---
Indications: Headache and seizures Technique: Spiral acquisitions obtained through the brain. Angled axial and coronal 5 x 5 mm slices were reconstructed. Total dose length product 1397.2 mGycm. CTDI vol(s) 70.38 mGy. Dose reduction achieved using automated exposure control Comparison: 10/11/2017 Findings: No acute intracranial hemorrhage or edema, mass effect, nor midline shift. Normal matias-white differentiation. Normal size ventricles and extra-axial CSF spaces. Intact calvarium. Visualized orbits and sinuses are unremarkable. Mastoids are clear. No significant interim change Impression: Negative The CT scanner at [facility] is accredited by the [employer] and the scans are performed using protocols designed to limit radiation exposure to as low as reasonably achievable to attain images of sufficient resolution adequate for diagnostic evaluation.
[2019-03-26] MEDS ORDERED: Phenytoin 1,000 MG in NS 275 ML IVPB ONE (15:45)
[2019-03-26 15:47] LABS: APPEARANCE,URINE CLEAR; BILIRUBIN, URINE NEGATIVE (NEGATIVE); COLOR,URINE PALE YELLOW; GLUCOSE, URINE (UA) NEGATIVE (NEGATIVE); KETONES,URINE NEGATIVE (NEGATIVE); LEUKOCYTE ESTERASE ,URINE 1+ (NEGATIVE); NITRITE,URINE NEGATIVE (NEGATIVE); PH,URINE 6 (4.5-8.0); PROTEIN,URINE NEGATIVE (NEGATIVE); UROBILINOGEN,URINE NORMAL MG/DL (0.0-1.0)
[2019-03-26 17:28] VITALS: BP 119/90
[2019-03-26] MEDS ORDERED: DILANTIN100 MG ORAL (17:53)
[2019-03-26 18:23] VITALS: BP 119/90
--- NOTE | 2019-03-26 18:23 | NUR ---
ER DISCHARGE NOTE: Patient is cleared to be discharged per ERMD, pt is aox4, on room air, with stable vital signs. pt was given dc and prescription instructions, pt was able to verbalize understanding, pt id band and iv site removed without complications. pt is able to ambulate with steady gait. pt took all belongings.
[2019-03-26] MEDS ORDERED: IBUPROFEN600 MG ORAL (18:28)
--- NOTE | 2019-03-27 12:37 | Cardiology Report ---
APPROVED REPORT EKG Measurement Heart [id number] Normal sinus rhythm Nonspecific T wave abnormality Abnormal ECG
== END 2019-03-26 18:23 | disposition home or self-care (01) ==
LOC: EDBD 14:12 → EMR 14:35
DX: G40.909 Epilepsy, unspecified, not intractable, without status epilepticus (principal); R51 Headache; T42.0X6A Underdosing of hydantoin derivatives, initial encounter; Y92.9 Unspecified place or not applicable; I10 Essential (primary) hypertension; J44.9 Chronic obstructive pulmonary disease, unspecified; Z88.8 Allergy status to other drugs, medicaments and biological substances; Z86.73 Personal history of transient ischemic attack (TIA), and cerebral infarction without residual deficits
CPT/HCPCS: 36415; 70450; 80053; 80185; 80329; 81003; 85025; 93005; 96365; 96375; 99284; J1165; J7040; J7050

== ENCOUNTER 2019-03-28 06:03 | Emergency (ER) | payer OTHER ==
[~2019-03-28] VITALS: Ht 177.8 cm; Wt 104.3 kg
[~2019-03-28 06:03] MED LIST changes: +KEPPRA500 M4 ORAL
--- NOTE | 2019-03-28 06:16 | NUR ---
ED Nurse Note: PT STATES SPIDER IS IN HER EAR, AND HAS BITE STEFAN ON TIP OF RIGHT EAR, PT VERY AGITATED HARD TO TRIAGE. Pt is AO x 4times, VSS, very anxious at bedside. ERMD seen Pt st bedside.
[2019-03-28 06:17] VITALS: BP 151/89
[2019-03-28] MEDS ORDERED: CEPHALEXIN500 MG ORAL (06:26)
[2019-03-28] MEDS ORDERED: IBUPROFEN600 MG ORAL (06:26)
[2019-03-28] MEDS ORDERED: CIPRODEX OTIC7.5 M1 RIGHT EAR (06:26)
[2019-03-28] MEDS ORDERED: Cephalexin 500mg cap ORAL ONE (06:30)
[2019-03-28 06:34] VITALS: BP 151/89
--- NOTE | 2019-03-28 06:35 | NUR ---
ER DISCHARGE NOTE: Patient is cleared to be discharged per ERMD, pt is aox4, on room air, with stable vital signs. pt was given dc and prescription instructions, pt was able to verbalize understanding, pt id band removed without complications. pt is able to ambulate with steady gait. pt took all belongings.
--- NOTE | 2019-03-31 07:13 | Emergency Room Report ---
History of Present Illness General Chief Complaint: General Complaint Source: Patient Present Illness HPI 53-year-old female presents ED for evaluation. Patient woke up this morning states that she has a "spider bite" in her right ear. Feels pain and swelling to the tragus. Throbbing, 6 out of 10, nonradiating. Feels that there is something inside her ear. Denies fevers or chills. Denies cough. Denies sick contacts or recent travel. No other aggravating relieving factors. Denies any other associated symptoms Allergies: Coded Allergies: PHENOBARBITAL (Unverified Allergy, Unknown, VOMIT/CRAMPING, 12/01/16) Patient History Past Medical History: HTN, COPD, seizures Past Surgical History: none Pertinent Family History: none Social History: Denies: smoking, alcohol use, drug use Now: No Immunizations: UTD Reviewed Nursing Documentation: PMH: Agreed; PSxH: Agreed Nursing Documentation-PMH Hx Hypertension: Yes Hx Asthma: Yes - EMPHYSEMA Hx COPD: Yes Hx Diabetes: No Hx Cancer: No Hx Gastrointestinal Problems: No Hx Neurological Problems: Yes - SEIZURE Hx Cerebrovascular Accident: Yes Hx Seizures: Yes Review of Systems All Other Systems: negative except mentioned in HPI Physical Exam Vital Signs Date Time Temp Pulse Resp B/P (MAP) Pulse Ox O2 Delivery O2 Flow Rate FiO2 03/28/19 06:08 96 20 151/89 (109) 95 03/28/19 06:17 97.6 03/28/19 06:17 Room Air Sp02 EP Interpretation: reviewed, normal General Appearance: no apparent distress, alert, GCS 15, non-toxic Head: normocephalic Eyes: bilateral eye normal inspection, bilateral eye PERRL ENT: hearing grossly normal, normal pharynx, no angioedema, normal voice, other - erythema/swelling to tragus R ear. R ear canal swollen. R TM unremarkable. no evidence of foreign body Neck: full range of motion, supple, no meningismus Respiratory: normal inspection Cardiovascular #1: normal inspection Gastrointestinal: normal inspection Rectal: deferred Genitourinary: no CVA tenderness Musculoskeletal: normal inspection Neurologic: alert, oriented x3, responsive, motor strength/tone normal, sensory intact, speech normal Psychiatric: anxious Skin: no rash Lymphatic: normal inspection Medical Decision Making Diagnostic Impression: Primary Impression: Cellulitis of ear Qualified Codes: H60.11 - Cellulitis of right external ear ER Course Hospital Course 53 yo F presents to ED c/o R ear pain. Differential diagnoses include: TM perforation, otitis externa, otitis media, vestibulitis/labryntitis Clinical course Patient placed on stretcher. After initial history, physical exam reveals a middle aged female in no acute distress. There is swelling and erythema to the tragus of the right ear. There is also resulting swelling to the right ear canal. Tender to palpation. No fluctuance or discharge. Right TM unremarkable. Using otoscope there is no evidence of foreign body or insect in the right ear. Reassurance given to patient. We will discharge with antibiotics. Safe for discharge for close outpatient follow-up. Will provide referrals Diagnosis - cellulitis of ear Stable and discharged to home with rx Keflex, ciprodex, motrin. Followup with PMD. Return to ED if symptoms recur or worsen Last Vital Signs Date Time Temp Pulse Resp B/P (MAP) Pulse Ox O2 Delivery O2 Flow Rate FiO2 03/28/19 06:34 97.6 20 151/89 98 Room Air 03/28/19 06:17 96 Status: improved Disposition: HOME, SELF-CARE Condition: Stable Scripts Ibuprofen* (MOTRIN*) 600 Mg Tablet 600 MG ORAL Q8H PRN for For Pain, #30 TAB 0 Refills Prov: Chuck Buitrago MD 03/28/19 Ciprofloxacin Hcl/Dexameth (CIPRODEX OTIC SUSPENSION) 7.5 Ml Drops.susp 4 DROP RIGHT EAR TWICE A DAY for 10 Days, #7.5 ML Prov: Chuck Buitrago MD 03/28/19 Cephalexin* (KEFLEX*) 500 Mg Capsule 500 MG ORAL EVERY 6 HOURS for 7 Days, CAP Prov: Chuck Buitrago MD 03/28/19 Referrals: [facility] ([facility]P) Soren Gonzalez. [facility] Patient Instructions: Cellulitis, [id number] Chuck Buitrago MD Mar 31, 2019 07:13
== END 2019-03-28 06:35 | disposition home or self-care (01) ==
LOC: EMR 06:26
DX: H60.11 Cellulitis of right external ear (principal); Z86.73 Personal history of transient ischemic attack (TIA), and cerebral infarction without residual deficits; J44.9 Chronic obstructive pulmonary disease, unspecified; I10 Essential (primary) hypertension; Z88.8 Allergy status to other drugs, medicaments and biological substances
CPT/HCPCS: 99282

== ENCOUNTER 2019-03-30 00:34 | Emergency (ER) | payer OTHER ==
[~2019-03-30] VITALS: Ht 177.8 cm; Wt 104.3 kg
[~2019-03-30 00:34] MED LIST changes: +CEPHALEXIN500 MG ORAL
--- NOTE | 2019-03-30 00:53 | NUR ---
ED Nurse Note: Patient presents for recurrent visit regarding ear pain. Patient's right is edematous with erythema. Patient reports the left ear had blood coming from it this morning, moderate amount.
[2019-03-30 00:55] VITALS: BP 150/83
[2019-03-30] MEDS ORDERED: Tetanus/Diptheria/Pertussis IM ONE (01:15)
[2019-03-30] MEDS ORDERED: Lidocaine 1% MPF 10mg/ml 5ml INJ ONE (01:15)
[2019-03-30] MEDS ORDERED: Bactrim-DS 1 tab ORAL ONE (01:15)
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
[2019-03-30] MEDS ORDERED: Ketorolac 30mg Inj IM ONE (02:00)
[2019-03-30] MEDS ORDERED: TRAMADOL HCL50 MG ORAL (02:09)
[2019-03-30] MEDS ORDERED: BACTRIM DS TAB1 EAC1 ORAL (02:09)
[2019-03-30] MEDS ORDERED: Cortisporin OTIC Susp 10ml LEFT EAR ONE (02:15)
[2019-03-30] MEDS ORDERED: Cortisporin OTIC Susp 10ml RIGHT EAR ONE (02:15)
--- NOTE | 2019-03-30 02:15 | NUR ---
ED Nurse Note: Patient tolerated procedure well. Patient currently resting.
[2019-03-30] MEDS ORDERED: Albuterol/Ipratropium 3ml neb HHN ONE (02:30)
[2019-03-30] MEDS ORDERED: Phenytoin 100mg cap ORAL ONE (02:30)
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
[2019-03-30] MEDS ORDERED: TYLENOL325 MG ORAL (04:48)
[2019-03-30] MEDS ORDERED: ALBUTEROL SULF8.5 GM INH (04:49)
[2019-03-30 06:20] VITALS: BP 150/83
[2019-03-30] MEDS ORDERED: DILANTIN100 MG ORAL (06:42)
== END 2019-03-30 06:20 | disposition home or self-care (01) ==
LOC: EMR 01:00
DX: H60.01 Abscess of right external ear (principal); H72.91 Unspecified perforation of tympanic membrane, right ear; Z91.19 Patient's noncompliance with other medical treatment and regimen; Z23 Encounter for immunization; I10 Essential (primary) hypertension; J44.9 Chronic obstructive pulmonary disease, unspecified; Z86.73 Personal history of transient ischemic attack (TIA), and cerebral infarction without residual deficits; G40.909 Epilepsy, unspecified, not intractable, without status epilepticus; F17.200 Nicotine dependence, unspecified, uncomplicated; Z88.8 Allergy status to other drugs, medicaments and biological substances; R51 Headache; Y04.8XXA Assault by other bodily force, initial encounter
CPT/HCPCS: 10060; 90471; 90715; 94640; 94664; 96372; 99284; J1885; Z7502; J7620

== ENCOUNTER 2020-01-01 14:48 | Emergency (ER) | payer OTHER ==
[~2020-01-01] VITALS: Ht 177.8 cm; Wt 90.7 kg
[~2020-01-01 14:48] MED LIST changes: +BACTRIM DS TAB1 EAC1 ORAL; +TYLENOL325 MG ORAL
--- NOTE | 2020-01-01 14:59 | Emergency Room Report ---
History of Present Illness General Chief Complaint: Seizure Source: Patient, EMS Present Illness HPI Disclaimer: Please note that this report is being documented using DRAGON technology. This can lead to erroneous entry secondary to incorrect interpretation by the dictating instrument. HPI: 54-year-old female with history of seizure disorder presents for evaluation after generalized clonic tonic seizure. Witnessed by her granddaughter last approximately 10 seconds while the patient was seated. No head injury reported. She was initially confused when EMS found her with stable blood sugar of 118. Patient was awake and improving in mentation during the ride according to EMS. Patient is now awake and alert has no complaints aside from some stiffness in her hands. States her seizures have well controlled on her current Dilantin regimen but did miss her last 2 doses. She smokes marijuana but denies any alcohol or other drug use. Otherwise has been in her usual state of health without reports of recent fever, chills, head injury, chest pain, palpitations, vomiting or diarrhea. Follows with neurologist Dr. Sanchez. PMH: Seizure disorder PSH: section Allergies: Phenobarbital Social Hx: Daily THC use, denies alcohol Allergies: Coded Allergies: PHENOBARBITAL (Unverified Allergy, Unknown, VOMIT/CRAMPING, 12/01/16) COVID-19 Screening Contact w/high risk pt: No Recent Travel to affected area: No Experienced COVID-19 symptoms?: No COVID-19 Testing performed STITCHER OPERATOR: No Patient History Now: No Nursing Documentation-PMH Hx Hypertension: Yes Hx Asthma: Yes - EMPHYSEMA Hx COPD: Yes Hx Diabetes: No Hx Cancer: No Hx Gastrointestinal Problems: No Hx Neurological Problems: Yes - SEIZURE Hx Cerebrovascular Accident: Yes Hx Seizures: Yes Review of Systems All Other Systems: negative except mentioned in HPI Physical Exam Vital Signs Date Time Temp Pulse Resp B/P (MAP) Pulse Ox O2 Delivery O2 Flow Rate FiO2 01/01/20 14:42 98.4 98 18 135/58 (83) 98 Room Air General: Awake and alert, no acute distress HEENT: NC/AT. EOMI. PERRLA. Visual rodrigues are full. No nystagmus. Facial expressions are symmetrical. No facial droop. Cardiovascular: RRR. S1 and S2 normal. No murmur appreciated Resp: Normal work of breathing. No cough, wheezing or crackles appreciated Abdomen: Abdomen is soft, nondistended. Nontender Skin: Intact. No abrasions, laceration or rash over the exposed skin MSK: Normal tone and bulk. Moving all extremities. No obvious deformity. There is no drift in the upper or lower extremities bilaterally. Neuro: Awake and alert. Mentating appropriately. Facial expression symmetrical. No dysarthria, no ataxia. Sensation to light touch is intact over the upper and lower extremities. The patient has intact speech with good repetition, comprehension. Fund of knowledge is full. No aphasia, no neglect. Medical Decision Making Diagnostic Impression: Primary Impression: Seizure disorder Additional Impressions: Subtherapeutic phenytoin level Cocaine abuse ER Course 54-year-old female history of seizure disorder taking Dilantin presents for evaluation after a brief generalized tonic-clonic seizure without head injury. Patient is awake alert and return to her neurologic baseline. She reports missing her last 2 dose of Dilantin. While subtherapeutic Dilantin levels are leading on the differential is also possible the patient has an electrolyte abnormality, dehydration, alcohol use, the consequences for daily THC use or other toxicologic process. Will obtain broad labs and give the patient an additional dose of Dilantin. 1800: Labs have returned largely within normal limits without findings of significant elevation in white count or electrolyte abnormalities. Patient did test positive for cocaine and now states that she was using some last night as well as marijuana. Her Dilantin level was low and the patient was loaded with IV Dilantin. Her medication was refilled. UA showed 2+ leukocyte esterase but few whites and few bacteria. Patient denies symptoms of urinary tract infection at this time and will await culture results. Discussed that she needs to follow-up with her neurologist. She remains at her neurologic baseline. She understands and agrees with this treatment plan will be discharged home. Laboratory Tests Test 01/01/20 15:15 01/01/20 16:05 White Blood Count 11.7 K/UL (4.8-10.8) H Red Blood Count 4.48 M/UL (4.20-5.40) Hemoglobin 13.4 G/DL (12.0-16.0) Hematocrit 39.1 % (37.0-47.0) Mean Corpuscular Volume 87 FL (80-99) Mean Corpuscular Hemoglobin 30.0 PG (27.0-31.0) Mean Corpuscular Hemoglobin Concent 34.4 G/DL (32.0-36.0) Red Cell Distribution Width 12.1 % (11.6-14.8) Platelet Count 250 K/UL (150-450) Mean Platelet Volume 8.2 FL (6.5-10.1) Neutrophils (%) (Auto) 64.5 % (45.0-75.0) Lymphocytes (%) (Auto) 23.4 % (20.0-45.0) Monocytes (%) (Auto) 8.2 % (1.0-10.0) Eosinophils (%) (Auto) 3.0 % (0.0-3.0) Basophils (%) (Auto) 0.9 % (0.0-2.0) Sodium Level 142 MMOL/L (136-145) Potassium Level 4.1 MMOL/L (3.5-5.1) Chloride Level 105 MMOL/L (98-107) Carbon Dioxide Level 25 MMOL/L (21-32) Anion Gap 12 mmol/L (5-15) Blood Urea Nitrogen 9 mg/dL (7-18) Creatinine 0.8 MG/DL (0.55-1.30) Estimated Glomerular Filtration Rate > 60 mL/min (>60) Glucose Level 98 MG/DL (74-106) Calcium Level 9.2 MG/DL (8.5-10.1) Phenytoin (Dilantin) Level 0.7 ug/mL (10-20) L Serum Alcohol < 3 mg/dL Urine Color Pale yellow Urine Appearance Clear Urine pH 6.5 (4.5-8.0) Urine Specific [place] 1.015 (1.005-1.035) Urine Protein Negative (NEGATIVE) Urine Glucose (UA) Negative (NEGATIVE) Urine Ketones Negative (NEGATIVE) Urine Blood 3+ (NEGATIVE) H Urine Nitrite Negative (NEGATIVE) Urine Bilirubin Negative (NEGATIVE) Urine Urobilinogen Normal MG/DL (0.0-1.0) Urine Leukocyte Esterase 2+ (NEGATIVE) H Urine RBC 2-4 /HPF (0 - 2) H Urine WBC 2-4 /HPF (0 - 2) Urine Squamous Epithelial Cells Moderate /LPF (NONE/OCC) H Urine Bacteria Few /HPF (NONE) Urine HCG, Qualitative Negative (NEGATIVE) Urine Opiates Screen Negative (NEGATIVE) Urine Barbiturates Screen Negative (NEGATIVE) Phencyclidine (PCP) Screen Negative (NEGATIVE) Urine Amphetamines Screen Negative (NEGATIVE) Urine Benzodiazepines Screen Negative (NEGATIVE) Urine Cocaine Screen Positive (NEGATIVE) H Urine Marijuana (THC) Screen Positive (NEGATIVE) H Last Vital Signs Date Time Temp Pulse Resp B/P (MAP) Pulse Ox O2 Delivery O2 Flow Rate FiO2 01/01/20 14:42 98.4 98 18 135/58 (83) 98 Room Air Disposition: HOME, SELF-CARE Condition: Stable Scripts Acetaminophen* (TYLENOL EXTRA STRENGTH*) 500 Mg Tablet 500 MG ORAL Q6H PRN for Mild Pain/Temp > 100.5, #30 TAB 0 Refills Prov: Christina Villarreal 01/01/20 Phenytoin Sodium Extended* (DILANTIN*) 100 Mg Capsule 100 MG ORAL THREE TIMES A DAY, #90 CAP 0 Refills Prov: Christina Villarreal 01/01/20 Allen Waldrop MD January 01, 2020 14:59
--- NOTE | 2020-01-01 14:59 | NUR ---
ED Nurse Note: Patient brought in by ambulance RA29 from home with complaints of tonic clonic seizure. Patient AAOx4 and ambulatory. Patient denies head trauma and injury. Seizure precaution initiated. Patient states that she has history of seizure. Patient states she is taking anti-seizure meds (dilantin).
--- NOTE | 2020-01-01 15:20 | NUR ---
ED Nurse Note: ERMD at bedside
[2020-01-01 15:22] VITALS: BP 128/68
[2020-01-01 15:32] LABS: BASOPHILS % (AUTO) 0.9 % (0.0-2.0); HEMATOCRIT 39.1 % (37.0-47.0); HEMOGLOBIN 13.4 G/DL (12.0-16.0); LYMPHOCYTES % (AUTO) 23.4 % (20.0-45.0); MEAN CORPUSCULAR VOLUME 87 FL (80-99); MONOCYTES % (AUTO) 8.2 % (1.0-10.0); NEUTROPHILS % (AUTO) 64.5 % (45.0-75.0); PLATELET COUNT 250 K/UL (150-450); RED BLOOD COUNT 4.48 M/UL (4.20-5.40); RED CELL DISTRIBUTION WIDTH 12.1 % (11.6-14.8); WHITE BLOOD COUNT 11.7 K/UL (4.8-10.8)
[2020-01-01 15:39] LABS: ANION GAP 12 mmol/L (5-15); BLOOD UREA NITROGEN 9 mg/dL (7-18); CALCIUM 9.2 MG/DL (8.5-10.1); CARBON DIOXIDE 25 MMOL/L (21-32); CHLORIDE 105 MMOL/L (98-107); CREATININE 0.8 MG/DL (0.55-1.30); POTASSIUM 4.1 MMOL/L (3.5-5.1); SODIUM 142 MMOL/L (136-145)
[2020-01-01] MEDS ORDERED: Phenytoin 1,000 MG in NS 275 ML IVPB ONE (15:45)
[2020-01-01] MEDS ORDERED: DILANTIN100 MG ORAL ×3 (15:48→18:30)
[2020-01-01] MEDS ORDERED: Phenytoin 250mg/5ml vial ONE (15:54)
--- NOTE | 2020-01-01 16:20 | NUR ---
ED Nurse Note: Patient was agitated, restless and was trying to pullout her IV. Staff responded at bedside by calming her down and by giving IV meds
[2020-01-01] MEDS ORDERED: LORazepam Inj 2mg/ml 1ml ONE (16:28)
[2020-01-01] MEDS ORDERED: LORazepam Inj 2mg/ml 1ml IV ONE (16:30)
[2020-01-01 17:03] LABS: APPEARANCE,URINE CLEAR; BILIRUBIN, URINE NEGATIVE (NEGATIVE); COLOR,URINE PALE YELLOW; GLUCOSE, URINE (UA) NEGATIVE (NEGATIVE); KETONES,URINE NEGATIVE (NEGATIVE); LEUKOCYTE ESTERASE ,URINE 2+ (NEGATIVE); NITRITE,URINE NEGATIVE (NEGATIVE); PH,URINE 6.5 (4.5-8.0); PROTEIN,URINE NEGATIVE (NEGATIVE); UROBILINOGEN,URINE NORMAL MG/DL (0.0-1.0)
[2020-01-01 17:22] VITALS: BP 120/68
--- NOTE | 2020-01-01 17:40 | NUR ---
ED Nurse Note: Patient was loud and was verbally abusive towards staff. Security was called to pacify patient.
[2020-01-01 18:26] VITALS: BP 120/68
--- NOTE | 2020-01-01 18:26 | NUR ---
ER DISCHARGE NOTE: Patient is cleared to be discharged per ERMD, pt is aox4, on room air, with stable vital signs. pt was given dc and prescription instructions, pt was able to verbalize understanding, pt id band and iv site removed without complications. pt is able to ambulate with steady gait. pt took all belongings. No episodes of seizure noted in the ER. Patient was picked up by a family member at the ER
[2020-01-01] MEDS ORDERED: TYLENOL EXTRA500 MG ORAL (18:30)
== END 2020-01-01 18:26 | disposition home or self-care (01) ==
LOC: EDBD 14:48 → EMR 15:10
DX: G40.909 Epilepsy, unspecified, not intractable, without status epilepticus (principal); R89.2 Abnormal level of other drugs, medicaments and biological substances in specimens from other organs, systems and tissues; F14.10 Cocaine abuse, uncomplicated; F12.90 Cannabis use, unspecified, uncomplicated; I10 Essential (primary) hypertension; J43.9 Emphysema, unspecified; Z88.8 Allergy status to other drugs, medicaments and biological substances; Z86.73 Personal history of transient ischemic attack (TIA), and cerebral infarction without residual deficits
CPT/HCPCS: 36415; 80048; 80185; 80307; 81003; 81025; 85025; 96365; 96375; G0480; J1165; J7050; Z7502; 99284